=== PATIENT | female | born 1960 | race Caucasian/White ===

== ENCOUNTER 2017-01-23 10:04 | Emergency (ER) | payer OTHER ==
[~2017-01-23 10:04] MED LIST: ALEVE220 M1 PO; COLCRYS0.6 MG PO; DEXTROSTAT PO; FLEXERIL PO; FLEXERIL10 MG PO; HYDROCODONE-A1 UDTA4 PO; IBUPROFEN800 MG PO; K-DUR20 ME1 PO; LORTAB 5/500 TA1 TA1 PO; LORTAB 5/500 TA1 TA2 PO; MEDROL4 MG/DOSE- PO; MOBIC PO; NAPROXEN PO; NORCO 5/325 TAB1 TAB PO; OMEPRAZOLE40 MG PO; ORUDIS75 M1 PO; PREDNISONE PO; PREDNISONE50 MG PO; SKELAXIN PO; ULTRAM PO; VOLTAREN50 MG PO; VOLTAREN75 MG PO; [UNRECOGNIZED DRUG - OTHER] PO
[2017-01-23 10:46] LABS: BASOPHIL# 0.2 X10e3 (0-0.3); BASOPHIL% 1.1 % (0-2.5); EOSINOPHIL# 0.1 X10e3 (0-0.7); EOSINOPHIL% 0.9 % (0.0-7.0); HEMATOCRIT 40.6 % (35.0-45.0); HEMOGLOBIN 13.4 gm/dL (12.0-16.0); LYMPHOCYTE# 4.6 X10e3 (1.0-3.5); LYMPHOCYTE% 28.6 % (17.0-45.0); MEAN CELL VOLUME 89.8 FL (83-96); MEAN CORPUSCULAR HEMOGLOBIN 29.5 PG (28-34); MEAN CORPUSCULAR HGB CONC 32.9 g/dL (30-36); MEAN PLATELET VOLUME 7.5 FL (6.5-11.5); MONOCYTE# 1.2 X10e3 (0-1.0); MONOCYTE% 7.7 % (3.0-12.0); NEUTROPHIL% 61.7 % (40-75); PLATELET COUNT 591 X10e3 (140-420); RED BLOOD COUNT 4.52 X10e (3.90-5.30); RED CELL DISTRIBUTION WIDTH 13.5 % (11.0-15.5); WHITE BLOOD COUNT 16.2 X10e3 (4.0-10.5)
[2017-01-23 10:52] LABS: DIFF IND YES
[2017-01-23 11:07] LABS: BUN/CREATININE RATIO 26.25; CALCIUM SERUM 8.9 mg/dL (8.4-10.2); CREATININE SERUM 0.8 mg/dL (0.6-1.4); GLOM FILT RATE Estimated 83.7 mL/min (>60); POTASSIUM 3.3 mmol/L (3.5-5.1)
[2017-01-23 11:40] LABS: ANISOCYTOSIS SL; PLATELET ESTIMATE INCREASED (NORMAL); RBC NORMAL YES
== END 2017-01-23 13:29 | disposition home or self-care (01) ==
LOC: CFTX 10:04
PROVIDERS: Nurse Practitioner Family
DX: S76.011A Strain of muscle, fascia and tendon of right hip, initial encounter (principal); M25.561 Pain in right knee; I10 Essential (primary) hypertension; Z88.8 Allergy status to other drugs, medicaments and biological substances; X50.9XXA Other and unspecified overexertion or strenuous movements or postures, initial encounter
CPT/HCPCS: 80048; 85025; 86140; 96372; 99283; J1885